=== PATIENT | male | born 1965 | race Caucasian/White ===

== ENCOUNTER 2017-12-12 12:08 | Emergency (ER) | payer BC ==
[2017-12-12] MEDS ORDERED: fentaNYL 100 MCG/2 ML SDV IVPUSH ONE ×2 (12:28→14:16)
[2017-12-12] MEDS ORDERED: Sodium Chloride 0.9% 10 ML Syringe FLUSH PRN (12:28)
[2017-12-12] MEDS ORDERED: Ondansetron 4 MG/2 ML SDV IV ONE (12:28)
--- NOTE | 2017-12-12 12:33 | EDM.PDOC ---
ED HPI GENERAL MEDICAL PROBLEM - General Chief Complaint: Upper Extremity Injury/Pain Stated Complaint: FELL OF DECKING ON A HIGH DECK Time Seen by Provider: 12/12/17 12:20 Source of Information: Reports: Patient History Limitations: Reports: No Limitations - History of Present Illness INITIAL COMMENTS - FREE TEXT/NARRATIVE: Patient emergency department today from home where he was on a deck and fell off landing on his left arm. Just prior to arrival the patient was working at home when he slipped on a scaffolding and fell to a hard surface approximately 7 feet landing on his left arm and injuring his left arm. He mainly complains of pain in the proximal humerus and shoulder region. He denies any head neck or back injury. He denies any loss of consciousness. Denies any difficulty breathing or shortness of breath. No chest pain shortness of breath or palpitations. He denies any injury to his abdomen and pelvis or lower extremities or his right upper extremity. He is unable to move his left arm due to pain. He has not taken anything for pain prior to arrival. He does not complain of any numbness or tingling to his left upper extremity. Left Upper Arm Pain Score (Numeric/FACES): 10 - Related Data Allergies Allergy/AdvReac Type Severity Reaction Status Date / Time Penicillins Allergy Cannot Verified 12/12/17 12:19 Remember Home Meds: Home Meds Levothyroxine 200 mcg PO DAILY 12/12/17 [History] Lisinopril 5 mg PO DAILY 12/12/17 [History] Past Medical History HEENT History: Reports: Impaired Vision Cardiovascular History: Reports: Hypertension Endocrine/Metabolic History: Reports: Hyperthyroidism Social & Family History - Family History Family Medical History: Noncontributory - Tobacco Use Smoking Status *Q: Current Every Day Smoker Years of Tobacco use: 10 Packs/Tins Daily: 1 - Caffeine Use Caffeine Use: Reports: Soda - Recreational Drug Use Recreational Drug Use: No Review of Systems - Review of Systems Review Of Systems: ROS reveals no pertinent complaints other than HPI. ED EXAM, GENERAL - Physical Exam Exam: See Below Free Text/Narrative:: He is sitting in a chair appears in moderate distress and holding his left proximal humerus. Exam Limited By: No Limitations General Appearance: Alert, WD/WN, No Apparent Distress Eye Exam: Bilateral Eye: Normal Inspection, PERRL Ears: Normal External Exam, Normal TMs Nose: Normal Inspection, Normal Mucosa Throat/Mouth: Normal Inspection, Normal Lips, Normal Oropharynx Head: Atraumatic, Normocephalic Neck: Normal Inspection, Supple, Non-Tender, Full Range of Motion. No: Tender Lateral, Tender Midline (No midline tenderness bony deformities or step-offs. C- spine is cleared.) Respiratory/Chest: No Respiratory Distress, Lungs Clear, No Accessory Muscle Use , Chest Non-Tender Cardiovascular: Normal Peripheral Pulses, Regular Rate, Rhythm Peripheral Pulses: 2+: Radial (L), Radial (R) GI/Abdominal: Normal Bowel Sounds, Soft, Non-Tender (Male) Exam: Deferred Rectal (Males) Exam: Deferred Back Exam: Normal Inspection, Full Range of Motion Extremities: Normal Inspection (Except for crepitus to left proximal humerus with movement.), Normal Range of Motion (Except for the left arm due to the injury.), Normal Capillary Refill, Other (To the right inferior elbow there is some abrasions that are rather superficial. There is no bony deformity swelling or tenderness and I'm able to put the right elbow throughout range of motion without eliciting any pain. Under the left crease of the axilla in the posterior aspect there is a superficial abrasion without bony deformity subcutaneous emphysema.) Neurological: Alert, Oriented, CN II-XII Intact, Normal Cognition Psychiatric: Normal Affect Skin Exam: Warm, Dry, Intact, Normal Color Lymphatic: No Adenopathy ED TRAUMA EXTREMITY PROCEDURES - Splinting Left Upper Extremity Splint Site: Left Humerus Pre-Procedure NV Status: Normal Post-Procedure NV Status: Normal Splint Material: Fiberglass Splint Design: Sugar Tong (Coaptation. ) Applied & Form Fitted By: Provider, Nurse, Tech Provider Post-Splint Application NV Check: NV Status Normal, Good Position Complications: No Course - Vital Signs Last Recorded V/S: Last Vital Signs Temp 36.4 C 12/12/17 12:27 Pulse 82 12/12/17 12:27 Resp 15 12/12/17 12:27 BP 139/95 H 12/12/17 12:27 Pulse Ox 95 12/12/17 12:27 - Orders/Labs/Meds Orders: Active Orders 24 hr Category Date Time Status Peripheral IV Care [RC] . DIRECTED Care 12/12/17 12:28 Active Shoulder 1V Lt [CR] Urgent Exams 12/12/17 12:29 Taken Sodium Chloride 0.9% [Saline Flush] Med 12/12/17 12:28 Active 10 ml FLUSH ASDIRECTED PRN Peripheral IV Insertion Adult [OM.PC] Stat Oth 12/12/17 12:28 Ordered Medication Orders Sodium Chloride (Saline Flush) 10 ml FLUSH ASDIRECTED PRN PRN Reason: Keep Vein Open Last Admin: 12/12/17 12:37 Dose: 10 ml Meds: Medications Generic Name Dose Route Start Last Admin Trade Name Freq PRN Reason Stop Dose Admin Sodium Chloride 10 ml 12/12/17 12:28 12/12/17 12:37 Saline Flush FLUSH 10 ml ASDIRECTED PRN Administration Keep Vein Open Discontinued Medications Generic Name Dose Route Start Last Admin Trade Name Freq PRN Reason Stop Dose Admin Fentanyl 100 mcg 12/12/17 12:28 12/12/17 12:37 Sublimaze IVPUSH 12/12/17 12:29 100 mcg ONETIME ONE Administration Fentanyl 50 mcg 12/12/17 14:16 12/12/17 14:23 Sublimaze IVPUSH 12/12/17 14:17 50 mcg ONETIME ONE Administration Hydromorphone HCl 1 mg 12/12/17 12:59 12/12/17 13:05 Dilaudid IVPUSH 12/12/17 13:00 1 mg ONETIME ONE Administration Ketorolac Tromethamine 30 mg 12/12/17 13:00 12/12/17 13:06 Toradol IVPUSH 12/12/17 13:01 30 mg ONETIME ONE Administration Midazolam HCl 1 mg 12/12/17 12:59 12/12/17 13:04 Versed 1 Mg/Ml IVPUSH 12/12/17 13:00 1 mg ONETIME ONE Administration Midazolam HCl 2 mg 12/12/17 14:16 12/12/17 14:23 Versed 1 Mg/Ml IVPUSH 12/12/17 14:17 2 mg ONETIME ONE Administration Ondansetron HCl 4 mg 12/12/17 12:28 12/12/17 12:36 Zofran IV 12/12/17 12:29 4 mg ONETIME ONE Administration - Re-Assessments/Exams Free Text/Narrative Re-Assessment/Exam: 12/12/17 12:33 IV normal saline lock. Zofran 4 mg IV push. Fentanyl 100 g IV push. 12/12/17 14:57 Patient also received other pain medication as he was still quite uncomfortable. I did consult an orthopedic surgeon in [place] who advises a coaptation splint as well as a sling. The patient was given fentanyl and Versed for pain management during the placement of the splint. He tolerated the procedure well. CMS was intact before and after the application. Sling applied. Departure - Departure Time of Disposition: 14:58 Disposition: Home, Self-Care 01 Clinical Impression: Fracture of humerus Qualifiers: Encounter type: initial encounter Humerus Location: shaft Fracture type: closed Fracture morphology: transverse Fracture alignment: displaced Laterality : left Qualified Code(s): S42.322A - Displaced transverse fracture of shaft of humerus, left arm, initial encounter for closed fracture - Discharge Information *PRESCRIPTION DRUG MONITORING PROGRAM REVIEWED*: Yes *COPY OF PRESCRIPTION DRUG MONITORING REPORT IN PATIENT FERNIE: Not Applicable Instructions: Humerus Fracture Treated With Immobilization, Xpad-od-Oxte, How to Use a Sling, [id number], Pain Medicine Instructions, [id number] Referrals: PCP,None [Primary Care Provider] - Forms: ED Department Discharge Additional Instructions: Tylenol and/or ibuprofen as he for pain. If pain not controlled with above hydrocodone 10/325 one tab by mouth every 4-6 hours when necessary pain conscience sedation #20 Rx given to patient. Rice therapy at home. Sling at all times. Follow-up with orthopedics in [place] in the next 7 days.Call to make appointment today. Return to the ED if new or worsening symptoms. ED Communication - Discussed Case With (1) Discussed Case With (1): Other (Dr. Mina Gandhi from [facility]. His guidance is a coaptation splint with sling and see him in the clinic in a week.) - My Orders Last 24 Hours: My Active Orders 12/12/17 12:28 Peripheral IV Care [RC] . DIRECTED Sodium Chloride 0.9% [Saline Flush] 10 ml FLUSH ASDIRECTED PRN Peripheral IV Insertion Adult [OM.PC] Stat 12/12/17 12:29 Shoulder 1V Lt [CR] Urgent - Assessment/Plan Last 24 Hours: My Active Orders 12/12/17 12:28 Peripheral IV Care [RC] . DIRECTED Sodium Chloride 0.9% [Saline Flush] 10 ml FLUSH ASDIRECTED PRN Peripheral IV Insertion Adult [OM.PC] Stat 12/12/17 12:29 Shoulder 1V Lt [CR] Urgent Assessment:: Transverse comminuted fracture of the mid left humerus Fall resulting in #1. Plan: Tylenol and/or ibuprofen as he for pain. If pain not controlled with above hydrocodone 10/325 one tab by mouth every 4-6 hours when necessary pain conscience sedation #20 Rx given to patient. Rice therapy at home. Sling at all times. Follow-up with orthopedics in [place] in the next 7 days.Call to make appointment today. Return to the ED if new or worsening symptoms.
[2017-12-12] MEDS ORDERED: HYDROmorphone 0.5 MG/0.5 ML Syringe IVPUSH ONE (12:59)
[2017-12-12] MEDS ORDERED: Midazolam 1 MG/ML 2 ML SDV IVPUSH ONE ×2 (12:59→14:16)
[2017-12-12] MEDS ORDERED: Ketorolac 30 MG/ML SDV IVPUSH ONE (13:00)
--- NOTE | 2017-12-12 13:12 | CR ---
Clinical history: 51-year-old male injured in fall off deck of [employer] Dilatation: Single AP view left humerus confirm complete transection (fracture) and offset mid diaphy sis left humerus. No foreign bodies. No dislocation of the ipsilateral left shoulder joint. Underlying left RIBS unremarkable. Left lung clear. No pleural effusion or pneumothorax.
[2017-12-12] MEDS ORDERED: Acetaminophen/oxyCODONE 325-5 MG Tab PO ONE (15:16)
--- NOTE | 2017-12-13 15:27 | CR ---
CLINICAL HISTORY: 51-year-old male injured fall off of scaffolding. INTERPRETATION: Single AP views left shoulder confirms acute proximal diaphyseal fracture (complete o ffset) left humerus. No fracture of the left shoulder "girdle". No acromioclavicular separation or glenohumeral dislocatio n. No underlying left rib fracture or lung contusion. No pneumothorax.
== END 2017-12-12 15:26 | disposition home or self-care (01) ==
LOC: DL.ED 12:08
DX: S42.322A Displaced transverse fracture of shaft of humerus, left arm, initial encounter for closed fracture (principal); F17.210 Nicotine dependence, cigarettes, uncomplicated; I10 Essential (primary) hypertension; E05.90 Thyrotoxicosis, unspecified without thyrotoxic crisis or storm; Z88.0 Allergy status to penicillin; Z79.899 Other long term (current) drug therapy; W19.XXXA Unspecified fall, initial encounter
CPT/HCPCS: 29105; 73020; 73060; 96374; 96375; 96376; 99283; A9270; J1170; J1885; J2250; J2405; J3010; J7050

== ENCOUNTER 2022-06-13 23:00 | Emergency (ER) | payer BC | END 2022-06-14 01:28 | disposition left against medical advice (07) | LOC: DL.ED 23:00 | DX: Z53.21 Procedure and treatment not carried out due to patient leaving prior to being seen by health care provider (principal) ==